=== PATIENT | male | born 1985 | race Caucasian/White ===

== ENCOUNTER 2024-10-19 21:34 | Emergency (ER) | payer SELFPAY ==
[2024-10-19] MEDS: Acetaminophen 500 MG Tab PO STA (21:58)
== END 2024-10-19 23:11 | disposition home or self-care (01) ==
LOC: MW.ED 21:34
DX: R00.2 Palpitations (principal); T46.7X5A Adverse effect of peripheral vasodilators, initial encounter
CPT/HCPCS: 99285; A9270; 99282